=== PATIENT | female | born 1960 | race African-American/Black ===

== ENCOUNTER 2018-09-30 09:06 | Emergency (ER) | payer OTHER, SELFPAY ==
[2018-09-30] MEDS ORDERED: Cephalexin 250 MG CAP ONE ×2 (09:28→09:31)
[2018-09-30] MEDS ORDERED: Acetaminophen 500 MG TAB ONE (09:28)
== END 2018-09-30 09:35 | disposition home or self-care (01) ==
LOC: NAV ERS 09:06
DX: L03.114 Cellulitis of left upper limb (principal); I10 Essential (primary) hypertension; Z79.899 Other long term (current) drug therapy
CPT/HCPCS: 99283